=== PATIENT | male | born 1975 | race Caucasian/White ===

== ENCOUNTER 2021-01-08 07:22 | Outpatient (CLI) | payer OTHER ==
[2021-01-08] MEDS ORDERED: ROPivacaine/PF 0.2%, 10 ML ONE (07:35)
[2021-01-08] MEDS ORDERED: LIDOCAINE-MPF 1%, 5ML ONE ×2 (07:36→08:07)
[2021-01-08] MEDS ORDERED: SODIUM BICARBONATE 4.2%, 5ML ONE (07:36)
[2021-01-08] MEDS ORDERED: GADOBUTROL 10 MMOL/10 ML VIAL ONE (08:41)
[2021-01-08] MEDS ORDERED: OMNIPAQUE 180 MG/ML, 10ML VIAL ONE (08:41)
== END 2021-01-08 23:59 | disposition home or self-care (01) ==
LOC: RAD 07:22
PROVIDERS: ATTEND Family Medicine Sports Medicine
DX: M25.511 Pain in right shoulder (principal); S43.431A Superior glenoid labrum lesion of right shoulder, initial encounter; M19.011 Primary osteoarthritis, right shoulder; M75.51 Bursitis of right shoulder; M75.01 Adhesive capsulitis of right shoulder; M75.31 Calcific tendinitis of right shoulder; X58.XXXA Exposure to other specified factors, initial encounter; Y93.9 Activity, unspecified; Y92.89 Other specified places as the place of occurrence of the external cause; Y99.8 Other external cause status
CPT/HCPCS: 23350; 73040; 73222; A9585; Q9965; J2795